=== PATIENT | female | born 2000 | race African-American/Black ===

== ENCOUNTER 2021-01-23 17:37 | Emergency (ER) | payer MEDICAID ==
[~2021-01-23] VITALS: Ht 165.1 cm; Wt 57.0 kg
[2021-01-23 18:37] VITALS: BP 115/78
[2021-01-23] MEDS ORDERED: ACETAMINOPHEN 325MG TABLET PO STA (19:07)
[2021-01-23 19:31] LABS: BASOPHILS % 0.6 % (0.0-2.0); EOSINOPHILS % 1.7 % (0.0-5.0); HEMOGLOBIN. 12.2 g/dL (12.0-16.0); LYMPHOCYTES % 19.1 % (20.0-50.0); MEAN CORPUSCULAR HEMOGLOBIN 27.9 pg (28.0-32.0); MEAN PLATELET VOLUME 7.7 fl (7.4-10.4); MONOCYTES % 9.5 % (2.0-8.0); NEUTROPHILS % 69.1 % (40.0-76.0); PLATELET 273 x1000/uL (130-400); RED BLOOD CELL COUNT 4.39 mill/uL (4.2-5.4); RED CELL DISTRIBUTION WIDTH 13.7 % (11.6-14.6)
[2021-01-23 19:38] LABS: CHLORIDE 104 mEq/L (98-107)
[2021-01-23 19:53] LABS: CLARITY URINE CLEAR (CLEAR); COLOR URINE YELLOW (YELLOW); KETONES URINE NEGATIVE (NEGATIVE); LEUKOCYTE ESTERASE URINE NEGATIVE (NEGATIVE); NITRITE URINE NEGATIVE (NEGATIVE); OCCULT BLOOD URINE NEGATIVE (NEGATIVE); PH URINE 7.5 (4.5-8.0); PROTEIN URINE NEGATIVE (NEGATIVE); SPECIFIC GRAVITY URINE 1.009 (1.005-1.030); UROBILINOGEN URINE 0.2 E.U./dL (0.2-1.0)
[2021-01-23 20:02] LABS: B-HCG QUANTITATIVE 37536 mIU/mL (<3)
== END 2021-01-23 22:29 | disposition left against medical advice (07) ==
LOC: ER 17:37
DX: O26.891 Other specified pregnancy related conditions, first trimester (principal); R10.9 Unspecified abdominal pain; M54.2 Cervicalgia; M54.9 Dorsalgia, unspecified; Z3A.12 12 weeks gestation of pregnancy; V49.88XA Car occupant (driver) (passenger) injured in other specified transport accidents, initial encounter; Y93.89 Activity, other specified; Y92.89 Other specified places as the place of occurrence of the external cause; Y99.8 Other external cause status
CPT/HCPCS: 36415; 76705; 76856; 80053; 81003; 84702; 85025; 99285